=== PATIENT | male | born 1970 | race African-American/Black ===

== ENCOUNTER 2018-03-20 09:21 | Emergency (ER) | payer SELFPAY ==
--- NOTE | 2018-03-20 11:07 | RAD ---
TWO VIEWS CHEST: Date: 03-20-18 Comparison: None. History: Cough, bronchitis. FINDINGS: No pneumothorax, pleural fluid, focal consolidation or alveolar edema. Heart and mediastinal contours are unremarkable. IMPRESSION: No acute findings. POS: [facility]
== END 2018-03-20 10:39 | disposition home or self-care (01) ==
LOC: ERS 09:21
DX: J20.9 Acute bronchitis, unspecified (principal); E11.9 Type 2 diabetes mellitus without complications; Z79.84 Long term (current) use of oral hypoglycemic drugs
CPT/HCPCS: 71046